=== PATIENT | male | born 1985 | race Hispanic/Latino ===

== ENCOUNTER 2017-01-09 12:41 | Emergency (ER) | payer OTHER ==
[2017-01-09 13:32] VITALS: BMI 29.7
[2017-01-09 13:37] VITALS: TEMP 98.9; O2SAT 99
[2017-01-09] MEDS ORDERED: Sodium Chloride 0.9% 1,000 ML IV STA (14:00)
[2017-01-09 14:21] VITALS: RESP 18
--- NOTE | 2017-01-09 14:27 | ED PDOC ---
Arrival/HPI - General Historian: Patient - General Chief Complaint: GI Problem Time Seen by Provider: 01/09/17 13:42 - History of Present Illness Narrative History of Present Illness (Text): 01/09/17 14:24 31yo male who present with complaint of abdominal pain with associated nausea, vomiting and diarrhea since yesterday. States he started having right sided chest and back pain today. Notes chronic history of back pain. Denies ripping/ tearing upper back pain, fever, chills, sick contact, urinary symptoms, melena, hematemesis, hematochezia, any other complaint. (Wyatt Ramirez) Past Medical History - Provider Review Nursing Documentation Reviewed: Yes - Infectious Disease Hx of Infectious Diseases: None - Tetanus Immunization Tetanus Immunization: Unknown - Cardiac Hx Cardiac Disorders: No Hx Hypertension: No - Pulmonary Hx Tuberculosis: No - Neurological HX Cerebrovascular Accident: No Hx Seizures: No - Hematological/Oncological Hx Cancer: No - Genitourinary/Gynecological Hx Sexually Transmitted Diseases: No - Psychiatric Hx Depression: No Hx Emotional Abuse: No Hx Physical Abuse: No Hx Substance Use: Yes (cocaine) - Surgical History Hx Orthopedic Surgery: Yes (knee) Other/Comment: left middle finger - Suicidal Assessment Feels Threatened In Home Enviroment: No Family/Social History - Physician Review Nursing Documentation Reviewed: Yes Family/Social History: Unknown Family HX Smoking Status: Current Some Days Smoker Hx Alcohol Use: No Hx Substance Use: Yes (cocaine) Allergies/Home Meds Allergies/Adverse Reactions: Allergies acetaminophen [From Vicodin] Allergy (Verified 01/09/17 13:33) SWELLING hydrocodone bitartrate [From Vicodin] Allergy (Verified 01/09/17 13:33) SWELLING fresh fruits and vegetables Allergy (Uncoded 01/09/17 13:33) URTICARIA Home Medications: Home Meds Medication Instructions Recorded Confirmed Gabapentin [Neurontin] 100 mg PO DAILY 01/09/17 01/09/17 QUEtiapine [SEROquel] 100 mg PO DAILY 01/09/17 01/09/17 Review of Systems - Physician Review All systems were reviewed & negative as marked: Yes - Review of Systems Constitutional: Normal Eyes: Normal ENT: Normal Respiratory: Normal Cardiovascular: Chest Pain Gastrointestinal: Abdominal Pain, Diarrhea, Nausea, Vomiting. absent: Constipation, Hematochezia Genitourinary Male: Normal Musculoskeletal: Back Pain Skin: Normal Neurological: Normal Endocrine: Normal Hemo/Lymphatic: Normal Psychiatric: Normal Physical Exam Vital Signs Reviewed: Yes Temperature: Afebrile Blood Pressure: Normal Pulse: Regular Respiratory Rate: Normal Appearance: Positive for: Well-Appearing, Non-Toxic, Comfortable Pain Distress: None Mental Status: Positive for: Alert and Oriented X 3 - Systems Exam Head: Present: Atraumatic, Normocephalic Pupils: Present: PERRL Extroacular Muscles: Present: EOMI Conjunctiva: Present: Normal Mouth: Present: Moist Mucous Membranes Neck: Present: Normal Range of Motion Respiratory/Chest: Present: Clear to Auscultation, Good Air Exchange. No: Respiratory Distress, Accessory Muscle Use, Wheezes, Decreased Breath Sounds, Rales, Retracting, Rhonchi, Tachypneic Cardiovascular: Present: Regular Rate and Rhythm, Normal S1, S2. No: Murmurs Abdomen: Present: Normal Bowel Sounds (Hyperactive BS x4), Other (Soft). No: Tenderness, Distention, Peritoneal Signs, Rebound, Guarding, McBurney's Point Tender, Rovsing's Sign Present, Hernias Back: Present: Normal Inspection Upper Extremity: Present: Normal Inspection. No: Cyanosis, Edema Lower Extremity: Present: Normal Inspection. No: Edema Neurological: Present: GCS=15, CN II-XII Intact, Speech Normal Skin: Present: Warm, Dry, Normal Color. No: Rashes Psychiatric: Present: Alert, Oriented x 3, Normal Insight, Normal Concentration Vital Signs Temp Pulse Resp BP Pulse Ox 01/09/17 16:05 79 18 122/63 99 01/09/17 14:21 89 18 124/65 99 01/09/17 13:36 98.9 F 99 H 17 126/62 99 Medical Decision Making - EKG Interpretation Interpreted by ED Physician: Yes (NSR @ 77bpm) ED Course and Treatment: 01/09/17 14:37 I was available for consultation during PA evaluation. The chart was reviewed by me, and I agree with disposition. The documented history was done by the physician hair spinner. The documented physical exam was done by the physician hair spinner. The documented procedures were done by the physician hair spinner. (Bridger Bryant) 01/09/17 16:11 PT presented for stated history. On re evaluation s/p medication patient states his pain resolved. Lab was unremarkable. Result was DW the pt. He will be DC home with a rx of pepcid and Zofran. Referred to his PMD. Advised TRT ED for any new or worsening symptoms (Wyatt Ramirez) - Lab Interpretations Lab Results: 01/09/17 14:30 01/09/17 14:30 Lab Results 01/09/17 14:30: WBC 11.3 H, RBC 4.86, Hgb 16.2, Hct 45.2, MCV 93.0, MCH 33.3, MCHC 35.8, RDW 14.0, Plt Count 202, MPV 10.2, Gran % 84.1 H, Lymph % (Auto) 9.3 L, [place] % (Auto) 5.1, Eos % (Auto) 1.4 L, Baso % (Auto) 0.1, Gran # 9.48 H, Lymph # 1.1 L, [place] # 0.6, Eos # 0.2, Baso # 0.01, PT 10.7, INR 0.99, APTT 28.8 , Sodium 140, Potassium 3.4 L, Chloride 104, Carbon Dioxide 24, Anion Gap 15, BUN 11, Creatinine 1.1, Est GFR ( Amer) > 60, Est GFR (Non-Af Amer) > 60 , Random Glucose 87, Calcium 9.3, Total Bilirubin 0.9, AST 24, ALT 42, Alkaline Phosphatase 64, Lactate Dehydrogenase 384, Total Creatine Kinase 99, Troponin I < 0.01, Total Protein 7.8, Albumin 4.4, Globulin 3.4, Albumin/Globulin Ratio 1.3 , Lipase 63 - Medication Orders Current Medication Orders: Discontinued Medications Famotidine (Pepcid) 20 mg IVP STAT STA Stop: 01/09/17 14:01 Last Admin: 01/09/17 14:44 Dose: 20 MG IVP Administration Document 01/09/17 14:44 EQ (Rec: 01/09/17 14:44 EQ [id number]) Charges for Administration # of IVP Administrations 1 Sodium Chloride (Sodium Chloride 0.9%) 1,000 mls @ 1,000 mls/hr IV .Q1H STA Stop: 01/09/17 14:59 Last Admin: 01/09/17 14:44 Dose: 1,000 MLS/HR eMAR Start Stop Document 01/09/17 14:44 EQ (Rec: 01/09/17 14:44 EQ [email or web address] Intravenous Solution Start Date 01/09/17 Start Time 14:44 Ketorolac Tromethamine (Toradol) 30 mg IVP STAT STA Stop: 01/09/17 14:01 Last Admin: 01/09/17 14:44 Dose: 30 MG IVP Administration Document 01/09/17 14:44 EQ (Rec: 01/09/17 14:44 EQ [email or web address] Charges for Administration # of IVP Administrations 1 Ondansetron HCl (Zofran Inj) 4 mg IVP STAT STA Stop: 01/09/17 14:01 Last Admin: 01/09/17 14:44 Dose: 4 MG IVP Administration Document 01/09/17 14:44 EQ (Rec: 01/09/17 14:44 EQ [email or web address]) Charges for Administration # of IVP Administrations 1 Disposition/Present on Arrival - Present on Arrival Any Indicators Present on Arrival: No History of DVT/PE: No History of Uncontrolled Diabetes: No Urinary Catheter: No History of Decub. Ulcer: No History Surgical Site Infection Following: None - Disposition Have Diagnosis and Disposition been Completed?: Yes Disposition Time: 16:15 Patient Plan: Discharge - Disposition Diagnosis: Abdominal pain, Vomiting and diarrhea, Gastritis Disposition: HOME/ ROUTINE Condition: STABLE Discharge Instructions (ExitCare): Abdominal Pain (ED) Additional Instructions: Follow BLAND diet within 24hrs Follow up with your Doctor Return to ED for any new or worsening symptoms Prescriptions: Famotidine [Pepcid] 20 mg PO BID #15 tab Ondansetron ODT [Zofran ODT] 4 mg PO Q8 #8 odt Referrals: Hal Estevez MD [Primary Care Provider] - Follow up with primary Mateo Norton MD [Staff Provider] - Follow up with primary
[2017-01-09 14:42] LABS: ADD MANUAL DIFF? NO
[2017-01-09 14:47] LABS: BASO # 0.01 K/mm3 (0.0-2.0); BASO % 0.1 % (0.0-3.0); EOS # 0.2 (0.0-0.7); EOS % 1.4 % (1.5-5.0); GRAN # 9.48 (1.4-6.5); GRAN % 84.1 % (50.0-68.0); HEMATOCRIT 45.2 % (42.0-52.0); LYMPH # 1.1 (1.2-3.4); LYMPH % 9.3 % (22.0-35.0); MEAN CORPUSCULAR HEMOGLOBIN 33.3 pg (25.0-35.0); MEAN CORPUSCULAR HGB CONC 35.8 g/dl (31.0-37.0); MEAN PLATELET VOLUME 10.2 fl (7.0-11.0); MONO # 0.6 (0.1-0.6); MONO % 5.1 % (1.0-6.0); PLATELET COUNT 202 10^3/uL (120.0-450.0); WHITE BLOOD COUNT 11.3 10^3/ul (4.5-11.0)
[2017-01-09 14:56] LABS: INR 0.99 (0.93-1.08); PARTIAL THROMBOPLASTIN TIME 28.8 Seconds (23.7-30.8)
[2017-01-09 15:07] LABS: ALB/GLOB RATIO 1.3 (1.1-1.8); ALKALINE PHOSPHATASE 64 U/L (38-133); ALT/SGPT 42 U/L (7-56); AST/SGOT 24 U/L (15-59); BILIRUBIN,TOTAL 0.9 mg/dL (0.2-1.3); BLOOD UREA NITROGEN 11 mg/dL (7-21); CALCIUM 9.3 mg/dL (8.4-10.5); CARBON DIOXIDE 24 mmol/L (21-33); CHLORIDE 104 mmol/L (98-107); GFR AFRICAN-AMERICAN > 60; GLUCOSE,RANDOM 87 mg/dL (70-110); LIPASE 63 U/L (23-300); POTASSIUM 3.4 mmol/L (3.6-5.0); SODIUM 140 mmol/L (132-148); TOTAL PROTEIN 7.8 g/dL (5.8-8.3)
[2017-01-09 15:19] LABS: TROPONIN I < 0.01 ng/mL
[2017-01-09 16:05] VITALS: BP 122/63; PULSE 79
--- NOTE | 2017-01-10 11:23 | CARD ---
APPROVED REPORT EKG Measurement Heart [id number] <Conclusion> Poor data quality, interpretation may be adversely affected Normal sinus rhythm Normal ECG
== END 2017-01-09 16:40 | disposition home or self-care (01) ==
LOC: ED 12:41
DX: K29.70 Gastritis, unspecified, without bleeding (principal)
CPT/HCPCS: 80053; 82550; 83615; 83690; 84484; 85025; 85610; 85730; 93005; 96374; 96375; 99283; J1885; J2405; J7040

== ENCOUNTER 2018-11-06 07:47 | Emergency (ER) | payer BC, OTHER ==
[2018-11-06 07:47] VITALS: BMI 29.7
[2018-11-06] MEDS ORDERED: Lidocaine 5% Patch TD ONE (08:57)
[2018-11-06 09:20] VITALS: RESP 18
[2018-11-06] MEDS ORDERED: Morphine 4 mg/ml ISec IVP STA (09:23)
--- NOTE | 2018-11-06 09:26 | ED PDOC ---
Arrival/HPI - General Chief Complaint: Back Pain Time Seen by Provider: 11/06/18 07:50 Historian: Patient - History of Present Illness Narrative History of Present Illness (Text): 11/06/18 09:10 33 year old male, with no significant past medical history, presents to the ED for evaluation of right sided neck pain radiating to his shoulder and back since yesterday. Patient informs pain with extension of his right extremity above his right shoulder but denies any trauma or injury. Patient informs taking over the counter medication for the pain without any improvement to symptoms. Patient denies any other associated somatic complaints. Patient denies any urinary or bowel incontinence. Patient denies any vision changes, headache, dizziness, weakness/numbness, saddle anesthesia, fever, chills, nausea, vomiting, abdominal pain, urinary symptoms or any other complaints. PMD: Dr. Estevez Time/Duration: 24 hours Symptom Onset: Gradual Symptom Course: Unchanged Quality: Aching Activities at Onset: Light Context: Home Past Medical History - Provider Review Nursing Documentation Reviewed: Yes - Infectious Disease Hx of Infectious Diseases: None - Tetanus Immunization Tetanus Immunization: Unknown - Cardiac Hx Cardiac Disorders: No Hx Hypertension: No - Pulmonary Hx Tuberculosis: No - Neurological HX Cerebrovascular Accident: No Hx Seizures: No - Hematological/Oncological Hx Cancer: No - Genitourinary/Gynecological Hx Sexually Transmitted Diseases: No - Psychiatric Hx Depression: No Hx Emotional Abuse: No Hx Physical Abuse: No Hx Substance Use: Yes (cocaine) - Surgical History Hx Orthopedic Surgery: Yes (knee) Other/Comment: left middle finger - Suicidal Assessment Feels Threatened In Home Enviroment: No Family/Social History - Physician Review Nursing Documentation Reviewed: Yes Family/Social History: Unknown Family HX Smoking Status: Current Some Days Smoker Hx Alcohol Use: No Hx Substance Use: Yes (cocaine) Allergies/Home Meds Allergies/Adverse Reactions: Allergies acetaminophen [From Vicodin] Allergy (Verified 01/09/17 13:33) SWELLING hydrocodone bitartrate [From Vicodin] Allergy (Verified 01/09/17 13:33) SWELLING fresh fruits and vegetables Allergy (Uncoded 01/09/17 13:33) URTICARIA Home Medications: Home Meds Medication Instructions Recorded Confirmed Gabapentin [Neurontin] 100 mg PO DAILY 01/09/17 01/09/17 QUEtiapine [SEROquel] 100 mg PO DAILY 01/09/17 01/09/17 Review of Systems - Physician Review All systems were reviewed & negative as marked: Yes - Review of Systems Constitutional: absent: Fevers Respiratory: absent: SOB, Cough Cardiovascular: absent: Chest Pain Gastrointestinal: absent: Abdominal Pain, Diarrhea, Nausea, Vomiting Genitourinary Male: absent: Dysuria, Urinary Output Changes Musculoskeletal: Back Pain, Neck Pain Neurological: absent: Headache, Dizziness, Focal Weakness Psychiatric: absent: Anxiety Physical Exam Vital Signs Reviewed: Yes Vital Signs Temp Pulse Resp BP Pulse Ox 11/06/18 08:57 77 18 122/78 98 11/06/18 08:10 98 F 98 H 20 122/88 100 Temperature: Afebrile Blood Pressure: Normal Pulse: Regular Respiratory Rate: Normal Appearance: Positive for: Well-Appearing, Non-Toxic, Comfortable Pain Distress: None Mental Status: Positive for: Alert and Oriented X 3 - Systems Exam Head: Present: Atraumatic, Normocephalic Pupils: Present: PERRL Extroacular Muscles: Present: EOMI Conjunctiva: Present: Normal Mouth: Present: Moist Mucous Membranes Neck: Present: Normal Range of Motion, Paraspinal Tenderness (tenderness to palpation to paraspinal cervical muscle). No: Meningeal Signs, MIDLINE TENDERNESS, JVD Respiratory/Chest: Present: Clear to Auscultation, Good Air Exchange. No: Respiratory Distress, Accessory Muscle Use Cardiovascular: Present: Regular Rate and Rhythm, Normal S1, S2. No: Murmurs Abdomen: No: Tenderness, Distention, Peritoneal Signs Back: Present: Pain with Leg Raise (positive straight right leg test). No: Midline Tenderness Upper Extremity: Present: Normal Inspection. No: Cyanosis, Edema Lower Extremity: Present: Normal Inspection. No: Edema Neurological: Present: GCS=15, CN II-XII Intact, Speech Normal Skin: Present: Warm, Dry, Normal Color. No: Rashes Psychiatric: Present: Alert, Oriented x 3, Normal Insight, Normal Concentration Medical Decision Making ED Course and Treatment: 11/06/18 08:57 Impression: 33 year old male presents to the ED for evaluation of right sided neck and shoulder pain. Differential Diagnosis included but are not limited to: -- Musculoskeletal pain Plan: -- Lidoderm --Ketamine -- X-ray of Cervical Spine -- Reassess and disposition Prior Visits: Notes and results from previous visits were reviewed. Progress Notes: 11/06/18 09:10 Patient became belligerent at bedside and is demanding IV opiates. However, patient is able to wave his right upper extremity without any complications. Patient was seen to walk around the ER angrily with normal gait. 11/06/18 09:30 Patient states he will go outside for a little and come back. 11/06/18 12:42 Patient reassessed and feels much better. He is currently at XR - RAD Interpretation Radiology Orders: 11/06/18 09:15 CERVICAL SPINE >18YR W/OBLIQUE [RAD] Stat - Medication Orders Current Medication Orders: Discontinued Medications Diazepam (Valium) 5 mg PO ONCE ONE; Protocol Stop: 11/06/18 08:58 Ketorolac Tromethamine (Toradol) 60 mg IM STAT STA Stop: 11/06/18 08:58 Lidocaine (Lidoderm) 1 ea TD ONCE ONE Stop: 11/06/18 08:58 - Scribe Statement The provider has reviewed the documentation as recorded by the Scribe Richard Sandoval. All medical record entries made by the Scribe were at my direction and personally dictated by me. I have reviewed the chart and agree that the record accurately reflects my personal performance of the history, physical exam, medical decision making, and the department course for this patient. I have also personally directed, reviewed, and agree with the discharge instructions and disposition. Disposition/Present on Arrival - Present on Arrival Any Indicators Present on Arrival: No History of DVT/PE: No History of Uncontrolled Diabetes: No Urinary Catheter: No History of Decub. Ulcer: No History Surgical Site Infection Following: None - Disposition Have Diagnosis and Disposition been Completed?: Yes Diagnosis: Neck pain, Cervical nerve root impingement, Musculoskeletal pain Disposition: HOME/ ROUTINE Disposition Time: 13:15 Patient Plan: Discharge Patient Problems: Current Active Problems Problem Status Onset Neck pain Acute Cervical nerve root impingement Acute Musculoskeletal pain Acute Condition: IMPROVED Discharge Instructions (ExitCare): Muscle Strain (DC), Generalized Neck Pain (DC) Print Language: AZERI Additional Instructions: All medical record entries made by the Scribe were at my direction and personally dictated by me. I have reviewed the chart and agree that the record accurately reflects my personal performance of the history, physical exam, medical decision making, and the department course for this patient. I have also personally directed, reviewed, and agree with the discharge instructions and disposition. Please follow up with a orthopedic surgeon for your back pain Prescriptions: Lidocaine 5% [Lidoderm] 1 ea TD Q12 #6 patch Oxycodone HCl/Acetaminophen [Endocet 10-325 mg Tablet] 1 each PO Q6H #6 tablet Referrals: Hal Estevez MD [Primary Care Provider] - Follow up with primary Gato Alan DO [Staff Provider] - Follow up with primary Forms: [employer] ([place]), WORK NOTE
[2018-11-06] MEDS ORDERED: Ketamine 50 mg/ml Inj (10 ml) IV STA (10:02)
[2018-11-06 11:26] VITALS: PULSE 77; O2SAT 98
--- NOTE | 2018-11-06 13:03 | RAD ---
Date of service: 11/06/2018 PROCEDURE: Cervical Spine Radiographs. HISTORY: Pain. COMPARISON: None available. FINDINGS: BONES: Alignment maintained. No fracture. Dens Intact. DISC SPACES: Normal. SOFT TISSUES: Normal. No prevertebral soft tissue swelling. OTHER FINDINGS: None. IMPRESSION: Normal cervical spine radiographs
[2018-11-06 13:45] VITALS: BP 122/78; TEMP 98
== END 2018-11-06 13:47 | disposition home or self-care (01) ==
LOC: ED 07:47
DX: M54.2 Cervicalgia (principal); M79.18 Myalgia, other site; G54.2 Cervical root disorders, not elsewhere classified

== ENCOUNTER 2018-12-06 17:49 | Emergency (ER) | payer BC ==
--- NOTE | 2018-12-06 17:54 | ED PDOC ---
Arrival/HPI - General Chief Complaint: Abdominal Pain Time Seen by Provider: 12/06/18 17:52 Historian: Patient - History of Present Illness Narrative History of Present Illness (Text): 12/06/18 18:33 33 y/o male with PMH of ADHD, anxiety, gastritis presents to the ED c/o epigastric pain x 12 hours. Describes pain as sharp and burning, located epigastrically and radiates up into his chest and through to his back. Recently put on Naproxen for knee pain, states it has been causing him heartburn. Pt saw nurse practitioner of Dr. Estevez today who recommended he come to ED for RUQ ultrasound to r/o pancreatitis. Denies fevers, chills, nausea, vomiting, palpitations, headache, dizziness, diarrhea, constipation, or any other associated symptoms. Past Medical History - Provider Review Nursing Documentation Reviewed: Yes - Infectious Disease Hx of Infectious Diseases: None - Tetanus Immunization Tetanus Immunization: Unknown - Cardiac Hx Cardiac Disorders: No Hx Hypertension: No - Pulmonary Hx Tuberculosis: No - Neurological HX Cerebrovascular Accident: No Hx Seizures: No - Hematological/Oncological Hx Cancer: No - Genitourinary/Gynecological Hx Sexually Transmitted Diseases: No - Psychiatric Hx Depression: No Hx Emotional Abuse: No Hx Physical Abuse: No Hx Substance Use: Yes (cocaine) - Surgical History Hx Orthopedic Surgery: Yes (knee) Other/Comment: left middle finger - Suicidal Assessment Feels Threatened In Home Enviroment: No Family/Social History - Physician Review Nursing Documentation Reviewed: Yes Family/Social History: No Known Family HX Smoking Status: Current Some Days Smoker Hx Alcohol Use: No Hx Substance Use: Yes (cocaine) Allergies/Home Meds Allergies/Adverse Reactions: Allergies acetaminophen [From Vicodin] Allergy (Verified 01/09/17 13:33) SWELLING hydrocodone bitartrate [From Vicodin] Allergy (Verified 01/09/17 13:33) SWELLING fresh fruits and vegetables Allergy (Uncoded 01/09/17 13:33) URTICARIA Home Medications: Home Meds Medication Instructions Recorded Confirmed Dextroamphetamine/Amphetamine 30 odt PO BID 12/06/18 12/06/18 [Adderall 30 mg Tablet] Lisdexamfetamine Dimesylate 10 mg PO DAILY 12/06/18 12/06/18 [Vyvanse] Review of Systems - Review of Systems Constitutional: Normal. absent: Fevers Eyes: Normal. absent: Vision Changes ENT: Normal. absent: Sore Throat, Sinus Congestion Respiratory: SOB Cardiovascular: Chest Pain Gastrointestinal: Abdominal Pain. absent: Stool Changes, Constipation, Diarrhea, Nausea, Vomiting, Appetite Changes Genitourinary Male: Normal. absent: Dysuria, Frequency Musculoskeletal: Back Pain. absent: Arthralgias, Neck Pain Skin: Normal. absent: Rash Neurological: Normal. absent: Headache, Dizziness Endocrine: Normal Hemo/Lymphatic: Normal Psychiatric: Normal Physical Exam Vital Signs Reviewed: Yes Temperature: Afebrile Blood Pressure: Normal Pulse: Regular Respiratory Rate: Normal Appearance: Positive for: Well-Appearing, Non-Toxic, Comfortable Pain Distress: None Mental Status: Positive for: Alert and Oriented X 3 - Systems Exam Head: Present: Atraumatic, Normocephalic Pupils: Present: PERRL Extroacular Muscles: Present: EOMI Conjunctiva: Present: Normal Mouth: Present: Moist Mucous Membranes Neck: Present: Normal Range of Motion. No: MIDLINE TENDERNESS, Paraspinal Tenderness Respiratory/Chest: Present: Clear to Auscultation, Good Air Exchange. No: Respiratory Distress, Accessory Muscle Use Cardiovascular: Present: Regular Rate and Rhythm, Normal S1, S2, Peripheal Pulses Present Abdomen: Present: Tenderness (generalized, worst epigastric and RUQ), Normal Bowel Sounds, Guarding (epigastric and RUQ), Other ((+) [place] sign). No: Distention, Peritoneal Signs Back: Present: Normal Inspection. No: CVA Tenderness, Midline Tenderness, Paraspinal Tenderness Upper Extremity: Present: Normal Inspection, Normal ROM, NORMAL PULSES, Neurovascularly Intact, Capillary Refill < 2s. No: Cyanosis, Edema, Temperature Abnormalties Lower Extremity: Present: Normal Inspection, NORMAL PULSES, Normal ROM, Neurovascularly Intact, Capillary Refill < 2 s. No: Edema, Temperature Abnormalties Neurological: Present: GCS=15, CN II-XII Intact, Speech Normal, Motor Func Grossly Intact, Normal Sensory Function, Gait Normal Skin: Present: Warm, Dry, Normal Color. No: Rashes Psychiatric: Present: Alert, Oriented x 3, Normal Insight, Normal Concentration, Normal Affect, Normal Mood Medical Decision Making ED Course and Treatment: 12/06/18 18:28 Initial Plan: * CBC, CMP * Lipase * Coags * Cardiac Iso * CXR * EKG * RUQ ultrasound * CTA * Pepcid Bloodwork reviewed, unremarkable Troponin negative, EKG shows no STEMI or acute ischemic changes CXR shows no active disease RUQ ultrasound normal CTA unremarkable, no dissection or abdominal/chest pathology Reports improvement in pain with medications. Requesting discharge home. Tolerated PO without difficulty. Spoke with patient's primary doctor, Dr. Estevez, who asks for patient to be discharged home. Pt is well appearing and admits to decreased pain. NOEL score 0. Pt requesting tramadol for chronic back pain, states it has worked for him in the past, and medicine for his chronic cough. Advised PMD and GI followup. Diagnostic testing results and plan of care discussed with patient. Strict instructions given regarding prescription use, importance of followup, and s igns/symptoms to return to ER including worsening pain, SOB, dizziness, or any other new/worsening symptoms. Pt verbalized understanding of discussion. Patient is A&Ox3, ambulating with steady gait, with vital signs stable for discharge. - Lab Interpretations I have reviewed the lab results: Yes - RAD Interpretation Narrative RAD Interpretations (Text): 12/06/18 18:30 CXR: FINDINGS: LUNGS: The lungs are well inflated and clear. PLEURA: No pleural effusions or pneumothorax. CARDIOVASCULAR: The heart is normal in size. No aortic atherosclerotic calcifications present. OSSEOUS STRUCTURES: Within normal limits for the patient's age. VISUALIZED UPPER ABDOMEN: Normal. OTHER FINDINGS: None. IMPRESSION: No active pulmonary disease. 12/06/18 19:38 Abdominal Ultrasound FINDINGS: LIVER: Within normal limits in size and echogenicity. No mass. GALLBLADDER: The gallbladder appears within normal limits. No gallbladder wall thickening or pericholecystic fluid. COMMON BILE DUCT: Within normal limits in size. PANCREAS: The distal pancreas is obscured by bowel gas. The visualized portion of the pancreas appears within normal limits. RIGHT KIDNEY: Unremarkable. Normal renal contours. No renal mass or calculus. No hydronephrosis. IMPRESSION: Unremarkable right upper quadrant ultrasound. Electronically signed on Dec 06, 2018 7:38:35 PM EDT by: Obinna Mccoy M.D., Certified by [employer], Diagnostic Radiology Exterior Designer: Radiologist - EKG Interpretation EKG Interpretation (Text): 12/06/18 18:31 Rate 69; NSR; Normal Intervals; No STEMI or other signs of acute ischemia Interpreted by ED Physician: Yes Type: 12 lead EKG Disposition/Present on Arrival - Present on Arrival Any Indicators Present on Arrival: No History of DVT/PE: No History of Uncontrolled Diabetes: No Urinary Catheter: No History Surgical Site Infection Following: None - Disposition Have Diagnosis and Disposition been Completed?: Yes Diagnosis: Epigastric abdominal pain Disposition: HOME/ ROUTINE Disposition Time: 21:40 Patient Plan: Discharge Condition: STABLE Discharge Instructions (ExitCare): Acute Abdomen (Belly Pain), Gastritis (DC) Additional Instructions: Tessalon perles every 8 hours as needed for cough Lidoderm patches daily as needed for back pain, 12 hours on 12 hours off Nexium daily Stop smoking Followup with GI within 2 days Followup with primary doctor within 2 days Prescriptions: Benzonatate [Tessalon Perles] 200 mg PO Q8 PRN 7 Days #21 sgl PRN Reason: Cough Esomeprazole Magnesium [Nexium] 20 mg PO DAILY #30 ecc Lidocaine 5% [Lidoderm] 1 ea TD DAILY PRN #30 patch PRN Reason: Pain, Moderate (4-7) traMADol [Ultram] 50 mg PO Q12 PRN #6 tab PRN Reason: Pain, Moderate (4-7) Referrals: Hal Estevez MD [Family Provider] - Follow up with primary Oliver Begum MD [Staff Provider] - Follow up with primary Forms: [employer] ([place]), WORK NOTE
[2018-12-06 17:56] VITALS: BMI 31.6
[2018-12-06 18:04] VITALS: RESP 18; TEMP 97.9
[2018-12-06 18:27] LABS: BASO # 0.03 K/mm3 (0.0-2.0); BASO % 0.3 % (0.0-3.0); EOS # 0.2 (0.0-0.7); EOS % 2.5 % (1.5-5.0); HEMOGLOBIN 15.1 g/dL (14.0-18.0); LYMPH # 3.3 (1.2-3.4); LYMPH % 35.4 % (22.0-35.0); MEAN CELL VOLUME 93.5 fl (80.0-105.0); MEAN CORPUSCULAR HEMOGLOBIN 32.5 pg (25.0-35.0); MEAN CORPUSCULAR HGB CONC 34.7 g/dl (31.0-37.0); MEAN PLATELET VOLUME 9.8 fl (7.0-11.0); MONO # 0.9 (0.1-0.6); RBC 4.65 10^6/uL (3.5-6.1); RED CELL DISTRIBUTION WIDTH 13.6 % (11.5-14.5); WHITE BLOOD COUNT 9.2 10^3/uL (4.5-11.0)
--- NOTE | 2018-12-06 18:32 | RAD ---
Date of service: 12/06/2018 HISTORY: epigastric abdominal pain COMPARISON: 06/23/2014. FINDINGS: LUNGS: The lungs are well inflated and clear. PLEURA: No pleural effusions or pneumothorax. CARDIOVASCULAR: The heart is normal in size. No aortic atherosclerotic calcifications present. OSSEOUS STRUCTURES: Within normal limits for the patient's age. VISUALIZED UPPER ABDOMEN: Normal. OTHER FINDINGS: None. IMPRESSION: No active pulmonary disease.
[2018-12-06 18:38] LABS: INR 1.03; PARTIAL THROMBOPLASTIN TIME 28.5 Seconds (26.9-38.3); PROTHROMBIN TIME 11.4 SECONDS (9.4-12.5)
[2018-12-06 19:19] LABS: ALB/GLOB RATIO 1.4 (1.1-1.8); ALT/SGPT 16 U/L (7-56); AMYLASE 81 U/L (35-125); AST/SGOT 22 U/L (17-59); BLOOD UREA NITROGEN 24 mg/dL (7-21); CALCIUM 8.9 mg/dL (8.4-10.5); GFR NON-AFRICAN AMERICAN > 60; LIPASE 87 U/L (23-300)
[2018-12-06 19:29] LABS: TROPONIN I < 0.01 ng/mL
[2018-12-06] MEDS ORDERED: Sodium Chloride 0.9% 1,000 ML IV STA (19:35)
[2018-12-06 20:32] LABS: URINE BILIRUBIN NEGATIVE (NEGATIVE); URINE BLOOD NEGATIVE (NEGATIVE); URINE GLUCOSE (UA) NEGATIVE (NEGATIVE); URINE LEUKOCYTE ESTERASE NEGATIVE Leu/uL (NEGATIVE); URINE PROTEIN NEGATIVE mg/dL (<30 mg/dL); URINE UROBILINOGEN 0.2 E.U./dL (<1 E.U./dL)
[2018-12-06 20:33] LABS: URINE APPEARANCE CLEAR (CLEAR); URINE COLOR LIGHT YELLOW (YELLOW)
[2018-12-06 20:36] VITALS: BP 141/78; PULSE 78; O2SAT 96
[2018-12-06 20:41] LABS: BARBITURATES, UR NEGATIVE (NEGATIVE)
[2018-12-06] MEDS ORDERED: Alum-Mag Hydrox-Simethicone Susp (30 mL) PO STA (20:41)
[2018-12-06] MEDS ORDERED: Atrop/Hyosc/Scopal/PB Elixir (120 ml) PO STA (20:41)
[2018-12-06 20:44] LABS: BENZODIAZEPINES, UR POSITIVE (NEGATIVE); OPIATES, UR NEGATIVE (NEGATIVE); PHENCYCLIDINE, UR NEGATIVE (NEGATIVE)
--- NOTE | 2018-12-06 22:36 | CARD ---
APPROVED REPORT Date of service: 12/06/2018 EKG Measurement Heart [id number] <Conclusion> Sinus rhythm with marked sinus arrhythmia Otherwise normal ECG
--- NOTE | 2018-12-07 12:14 | CT ---
PROCEDURE: CT Angiography Chest, Abdomen and Pelvis with and without intravenous contrast HISTORY: chest/back pain radiates to back COMPARISON: None. TECHNIQUE: Contiguous axial images of the chest, abdomen and pelvis were obtained in the phase of aortic enhancement. A noncontrast enhanced CT of the chest was also obtained to evaluate for possible intramural thrombus. Coronal and sagittal reformats were generated. IV dose administered: Radiation dose: Total exam DLP = 2848.02 mGy-cm. This CT exam was performed using one or more of the following dose reduction techniques: Automated exposure control, adjustment of the mA and/or kV according to patient size, and/or use of iterative reconstruction technique. FINDINGS: CT ANGIOGRAPHY OF THE CHEST WITH & WITHOUT CONTRAST: AORTA (CHEST AND ABDOMEN): The thoracic and abdominal aorta are unremarkable, without aneurysm, dissection or rupture. No intramural thrombus identified in the thoracic aorta on the non-contrast ct of the chest. The celiac axis, superior mesenteric artery, inferior mesenteric artery and the renal arteries are widely patent. The pelvic arteries are unremarkable. LUNGS: Clear. No nodule, mass or consolidation. MEDIASTINUM: Unremarkable. Normal caliber aorta and pulmonary arterial trunk. No aortic dissection. Normal size heart. LYMPH NODES: Unremarkable. PLEURA: Unremarkable. No pneumothorax. No pleural fluid. BONES: Unremarkable. OTHER FINDINGS: None. CT ANGIOGRAPHY OF THE ABDOMEN AND PELVIS WITH CONTRAST: LIVER: Unremarkable. No gross lesion or ductal dilatation. GALLBLADDER AND BILE DUCTS: Unremarkable. PANCREAS: Unremarkable. No gross lesion or ductal dilatation. SPLEEN: Unremarkable. ADRENALS: Unremarkable. No mass. KIDNEYS AND URETERS: Unremarkable. No hydronephrosis. No solid mass. VASCULATURE: Unremarkable. No aortic aneurysm. No aortic atherosclerotic calcification or mural plaque present. STOMACH AND BOWEL: Unremarkable. No obstruction. No gross mural thickening. APPENDIX: Normal appendix. PERITONEUM: Unremarkable. No free fluid. No free air. LYMPH NODES: Unremarkable. No enlarged lymph nodes. BLADDER: Unremarkable. REPRODUCTIVE: Unremarkable. BONES: No acute fracture. OTHER FINDINGS: None. IMPRESSION: No aortic dissection.
--- NOTE | 2018-12-07 13:38 | US ---
Date of service: 12/06/2018 HISTORY: with focus to RUQ and pancreas COMPARISON: None. TECHNIQUE: Sonographic evaluation of the abdomen. FINDINGS: LIVER: Measures 14.69 x 14.26 cm. Increased echogenicity of the liver parenchyma. No mass. No intrahepatic bile duct dilatation. GALLBLADDER: Unremarkable. No gallstones. COMMON BILE DUCT: Measures 4 mm. No stones. No dilatation. PANCREAS: Unremarkable as visualized. No mass. No ductal dilatation. RIGHT KIDNEY: Measures 10.89 x 4.62 x 5.13cm. Normal echogenicity. No calculus, mass, or hydronephrosis. LEFT KIDNEY: Measures 11.39 x 6.50 x 5.84cm. Normal echogenicity. No calculus, mass, or hydronephrosis. SPLEEN: Normal in size and contour. No mass. 12.92 x 5.27 cm AORTA: No aneurysmal dilatation. IVC: Unremarkable. OTHER FINDINGS: The report concurs with the preliminary [facility] report IMPRESSION: Fatty infiltration of the liver.
== END 2018-12-06 21:58 | disposition home or self-care (01) ==
LOC: ED 17:49
DX: R10.13 Epigastric pain (principal); F90.9 Attention-deficit hyperactivity disorder, unspecified type
CPT/HCPCS: 71045; 71275; 74175; 76700; 80053; 81003; 82150; 82550; 83615; 83690; 83735; 84100; 84484; 85025; 85610; 85730; 87086; 93005; 96374; 99285; G0480; J7030; Q9967